=== PATIENT | female | born 1940 | race Caucasian/White ===

== ENCOUNTER 2019-03-08 06:20 | Day surgery (SDC) | payer OTHER ==
[~2019-03-08 06:20] MED LIST: AVAPRO300 MG PO; NORVASC5 MG PO; TOPROL XL200 MG
== END 2019-03-08 13:50 | disposition home or self-care (01) ==
LOC: CIR.AMB 06:20
DX: K64.8 Other hemorrhoids (principal); K64.4 Residual hemorrhoidal skin tags